=== PATIENT | female | born 1985 | race Caucasian/White ===

== ENCOUNTER 2016-09-23 05:00 | Inpatient (IN) | payer OTHER, MEDICAID ==
[~2016-09-23] VITALS: Ht 154.9 cm; Wt 81.6 kg
[2016-09-23] MEDS ORDERED: LR 1,000 ML IV SCH ×3 (05:32→09:13)
[2016-09-23] MEDS ORDERED: CEFAZOLIN 2 GM IVPB PREMIX 50 ML IV ONE ×2 (05:45→14:00)
[2016-09-23 06:27] VITALS: BP 101/59; PULSE 75; RESP 18; TEMP 98.3
[2016-09-23] MEDS ORDERED: ePHEDrine sulfate 50 MG/ML VIAL IVP PRN (08:15)
[2016-09-23] MEDS ORDERED: ONDANSETRON HCL 4 MG/2 ML VIAL IVP PRN ×2 (08:15)
[2016-09-23] MEDS ORDERED: HYDROmorphone 2 MG/ML VIAL IVP PRN ×2 (08:15)
[2016-09-23] MEDS ORDERED: MEPERIDINE HCL/PF 25 MG/ML DISP.SYRIN IVP PRN ×2 (08:15)
[2016-09-23] MEDS ORDERED: HYDROmorphone 1 MG INJ. 1 MG/ML AMPUL IVP PRN ×2 (08:15)
[2016-09-23] MEDS ORDERED: DIPHENHYDRAMINE INJ 50 MG/ML VIAL IVP PRN (08:15)
[2016-09-23] MEDS ORDERED: NALBUPHINE HCL 10 MG/ML AMP IVP PRN (08:15)
[2016-09-23] MEDS ORDERED: KETOROLAC TROMETHAMINE 30 MG VIAL IVP PRN ×2 (08:15)
[2016-09-23] MEDS ORDERED: NALOXONE HCL 0.4 MG/ML AMP (NARCAN) IVP PRN (08:15)
[2016-09-23] MEDS ORDERED: MORPHINE SULFATE 10MG/10ML PF AMP SP SCH (08:15)
[2016-09-23] MEDS ORDERED: OXYTOCIN/NORMAL SALINE 1,000 ML IV ONE (09:13)
[2016-09-23 09:15] VITALS: BP 98/59
[2016-09-23] MEDS ORDERED: RHO(D) IMMUNE GLOBULIN/MALTOSE 1500 UNITS/1.3 ML (WINHRO) IM PRN (09:15)
[2016-09-23] MEDS ORDERED: OXYCODONE/ACETAMINOPHEN 5-325 TABLET PO PRN (09:15)
[2016-09-23] MEDS ORDERED: ANUSOL 1 EA SUPP.RECT (PREPARATION H) RC PRN (09:15)
[2016-09-23] MEDS ORDERED: MEASLES,MUMPS&RUBELLA VACC/PF 12500 UNIT/0.5 ML VIAL SUBQ PRN (09:15)
[2016-09-23] MEDS ORDERED: LANOLIN 7 GM OINT. TP PRN (09:15)
[2016-09-23] MEDS ORDERED: BISACODYL 10 MG/SUPPOSITORY RC PRN (09:15)
[2016-09-23] MEDS ORDERED: SENNOSIDES/DOCUSATE SODIUM 1 TAB TABLET(SENOKOT-S) PO PRN (09:15)
[2016-09-23] MEDS ORDERED: NS IRRIG SOLN 1000 ML IR ONE (14:00)
[2016-09-23] MEDS ORDERED: MORPHINE SULFATE 10MG/10ML PF AMP ONE (14:00)
[2016-09-23] MEDS ORDERED: LR 1,000 ML IV.SOLN IV ONE (14:00)
[2016-09-23] MEDS ORDERED: TEMAZEPAM 15 MG CAPSULE PO PRN (21:00)
[2016-09-24] MEDS: IBUPROFEN 800 MG TABLET PO PRN ×4 (06:25→23:35)
[2016-09-24 06:51] LABS: HEMATOCRIT 32.9 % (36-48)
[2016-09-24] MEDS: SIMETHICONE 80 MG TAB.CHEW PO PRN (08:20)
[2016-09-24] MEDS: DOCUSATE SODIUM 100 MG CAPSULE PO PRN (08:29)
[2016-09-24] MEDS: OXYCODONE/ACETAMINOPHEN 5-325 TABLET PO PRN (23:35)
[2016-09-25] MEDS: IBUPROFEN 800 MG TABLET PO PRN ×3 (06:25→18:27)
[2016-09-25] MEDS: OXYCODONE/ACETAMINOPHEN 5-325 TABLET PO PRN ×2 (09:50→16:50)
[2016-09-25] MEDS: SIMETHICONE 80 MG TAB.CHEW PO PRN (16:49)
[2016-09-26] MEDS: IBUPROFEN 800 MG TABLET PO PRN ×3 (00:07→12:46)
[2016-09-26] MEDS: DOCUSATE SODIUM 100 MG CAPSULE PO PRN (08:46)
[2016-09-26] MEDS: OXYCODONE/ACETAMINOPHEN 5-325 TABLET PO PRN ×2 (08:46→12:46)
[2016-09-26] MEDS: SIMETHICONE 80 MG TAB.CHEW PO PRN (08:46)
== END 2016-09-26 13:10 | disposition home or self-care (01) | DRG 766 ==
LOC: SPU 05:00
PROVIDERS: ADMIT Obstetrics & Gynecology; ATTEND Obstetrics & Gynecology
PROC: 0UL70ZZ Occlusion of Bilateral Fallopian Tubes, Open Approach (ICD-10-PCS; 2016-09-23)
PROC: 10D00Z1 Extraction of Products of Conception, Low, Open Approach (ICD-10-PCS; principal; 2016-09-23 07:30)
DX: O34.211 Maternal care for low transverse scar from previous cesarean delivery (principal); Z37.0 Single live birth; Z30.2 Encounter for sterilization; Z3A.39 39 weeks gestation of pregnancy; O69.1XX0 Labor and delivery complicated by cord around neck, with compression, not applicable or unspecified
CPT/HCPCS: 36415; 85018-TC; 86592; 86886; 86900; 86901; 88302; 94760; J0690; J1885; J2274; J2405; J2590; J7120